=== PATIENT | male | born 1955 | race Two or more races ===

== ENCOUNTER 2020-10-31 09:40 | Day surgery (SDC) | payer MEDICARE, MEDICAID ==
[~2020-10-31] VITALS: Ht 165.1 cm; Wt 83.6 kg
[2020-10-31 09:55] VITALS: BP 137/76
[2020-10-31] MEDS ORDERED: METF-900 PO (09:59)
[2020-10-31] MEDS ORDERED: METF-436 PO (10:00)
[2020-10-31] MEDS ORDERED: GABA300C PO (10:01)
[2020-10-31] MEDS ORDERED: ASPI-611 PO (10:01)
[2020-10-31] MEDS ORDERED: MELO-102 PO (10:04)
[2020-10-31] MEDS ORDERED: ACET325T55 PO (10:04)
[2020-10-31] MEDS ORDERED: LISI-790 PO (10:05)
[2020-10-31] MEDS ORDERED: ATOR20TA66 PO (10:05)
[2020-10-31] MEDS ORDERED: MULT-1085 PO (10:06)
[2020-10-31] MEDS ORDERED: MIDAZolam 1 MG/ML 5ML VIAL ONE (10:18)
[2020-10-31] MEDS ORDERED: fentaNYL/PF 50MCG/1 ML 2ML syringe ONE (10:19)
[2020-10-31] MEDS ORDERED: LIDOcaine Viscous 15ml cup ONE (10:41)
[2020-10-31 11:26] VITALS: BP 101/69
[2020-10-31 11:36] VITALS: BP 111/58
[2020-10-31 11:46] VITALS: BP 107/71
[2020-10-31 11:56] VITALS: BP 130/70
== END 2020-10-31 12:05 | disposition home or self-care (01) ==
LOC: GI LAB 09:40
PROVIDERS: ATTEND Internal Medicine Gastroenterology
DX: D50.0 Iron deficiency anemia secondary to blood loss (chronic) (principal); K64.8 Other hemorrhoids; K63.5 Polyp of colon; K29.60 Other gastritis without bleeding; I10 Essential (primary) hypertension; E11.9 Type 2 diabetes mellitus without complications; Z79.84 Long term (current) use of oral hypoglycemic drugs; Z79.899 Other long term (current) drug therapy
CPT/HCPCS: 43239; 45380; 45385; 88305; 88342; 99153; C1773; G0500; J2250; J3010; J7040; Z7512; 99152; A4620

== ENCOUNTER 2022-10-29 07:32 | Day surgery (SDC) | payer MEDICARE, MEDICAID ==
[2022-10-22 16:07] LABS: BASOPHILS % (AUTO) 0.3 % (0-1); EOSINOPHILS # (AUTO) 0.2 X10'3 (0-0.9); EOSINOPHILS % (AUTO) 1.6 % (0-6); LYMPHOCYTES # (AUTO) 1.3 X10'3 (1.1-4.8); MEAN CORPUSCULAR HEMOGLOBIN 30.8 PG (27.0-31.0); MEAN CORPUSCULAR HGB CONC 33.3 g/dL (33.0-36.5); MEAN CORPUSCULAR VOLUME 92.5 FL (78-98); MEAN PLATELET VOLUME 8.1 FL (7.4-10.4); MONOCYTES # (AUTO) 0.8 X10'3 (0-0.9); MONOCYTES % (AUTO) 7.1 % (2-12); NEUTROPHILS # (AUTO) 8.9 X10'3 (1.8-7.7); PRE OP HEMATOCRIT 43.7 % (42.0-52.0); PRE OP HEMOGLOBIN 14.6 g/dL (14.0-17.9); PRE OP PLATELET COUNT 255 X10'3 (140-440); PRE OP WHITE BLOOD COUNT 11.2 10'3 (4.8-10.8); RED BLOOD COUNT 4.73 X10'6 (4.70-6.10); RED CELL DISTRIBUTION WIDTH 14.5 % (11.5-14.5)
[2022-10-22 16:14] LABS: PRE OP PROTIME 10.4 SECONDS (9.0-12.0)
[2022-10-22 16:16] LABS: ALBUMIN 3.6 G/DL (3.4-5.0); ALBUMIN/GLOBULIN RATIO 0.8 (1.1-1.5); ALKALINE PHOSPHATASE 89 IU/L (46-116); BLOOD UREA NITROGEN 23 MG/DL (7-18); BUN/CREATININE RATIO 18.7 (10.0-20.0); CALCIUM 9.7 MG/DL (8.5-10.1); CHLORIDE 101 MMOL/L (99-107); CREATININE 1.23 MG/DL (0.60-1.10); PRE OP ALT 31 U/L (30-65); PRE OP ANION GAP 8 (8-16); PRE OP AST 25 U/L (10-37); PRE OP BILIRUB, TOTAL 0.2 MG/DL (0.0-1.0); PRE OP GLUCOSE 135 MG/DL (70-104); PRE OP POTASSIUM 3.9 MMOL/L (3.4-5.1); PRE OP SODIUM 139 MMOL/L (135-145); TOTAL CARBON DIOXIDE 30.1 MMOL/L (24-32); TOTAL PROTEIN 8.1 G/DL (6.4-8.2); eGFR 59 ML/MIN
[2022-10-29] VITALS (14 sets, daily range): BP systolic 124–143; BP diastolic 67–83; PULSE 67–72; RESP 13–17; TEMP 97.7; O2SAT 92–99
[~2022-10-29] VITALS: Ht 167.6 cm; Wt 80.6 kg
[~2022-10-29 07:32] MED LIST: ALEN70TA80 PO; APIX5TAB3 PO; ATOR20TA66 PO; CALC-472 PO; DOCU-22 PO; DULO60CA65 PO; FERR-106 PO; FLO0.4C PO; GABA300C PO; HYDR-3972 PO; SENN-263 PO; cefazolin 2gm/D5W 100mL 100 ML IV ONE; famotidine 20mg tablet PO ONE; ringers solution, lacted 1,000 ML IV SCH; tranexamic acid inj. 1,000 MG in normal saline IV soln 100ML IV ONE
[2022-10-29] MEDS ORDERED: BUPIVACAINE liposomal/PF 13.3 MG/ML vial IM ONE (07:56)
[2022-10-29] MEDS ORDERED: vancomycin 1,000mg inj ONE (07:56)
[2022-10-29] MEDS ORDERED: BUPIVAcaine 0.5% inj/PF 30 ML ONE ×2 (07:56→09:48)
[2022-10-29] MEDS ORDERED: fentaNYL/PF 50MCG/1 ML 2ML syringe ONE (08:14)
[2022-10-29] MEDS ORDERED: midazolam 1 mg/ML 2ml injection ONE (08:15)
[2022-10-29] MEDS ORDERED: meperidine/PF 25mg/ml syringe IV PRN ×3 (08:25)
[2022-10-29] MEDS ORDERED: morphine 4 MG/ML inj SYRINge IV PRN (08:25)
[2022-10-29] MEDS ORDERED: morphine 2 MG/ML inj. syringe IV PRN (08:25)
[2022-10-29] MEDS ORDERED: proCHLORperazine 10 MG/2 ml inj IV PRN (08:25)
[2022-10-29] MEDS ORDERED: ondansetron/PF 4mg/2ml inj IV PRN (08:25)
[2022-10-29] MEDS ORDERED: ringers solution, lacted 1,000 ML IV SCH (08:25)
[2022-10-29] MEDS ORDERED: sevoflurane 250ml liquid IH ONE (08:31)
[2022-10-29] MEDS ORDERED: LIDOcaine 2% (20mg/ml) 5ml vial ONE (08:31)
[2022-10-29] MEDS ORDERED: dexamethasone sod phosphate 4mg/ml inj. ONE (09:55)
[2022-10-29] MEDS ORDERED: propofol inj 20 ML IV ONE (09:55)
[2022-10-29] MEDS ORDERED: ondansetron/PF 4mg/2ml inj ONE (09:56)
--- NOTE | 2022-10-29 10:05 | NUR ---
PT ARRIVED TO [facility] VIA [facility] ACCOMPANIED BY DR. KINNEY-ANESTHESIA REPORT GIVEN, PT DROWSY, VSS-GIVEN DICK HUGGER TO BRING UP TEMP, DENIES PAIN, LEFT ARM IN SLING-WRAPPED, CDI, 20G PIV TO RIGHT HAND, SCDS ON, ICE APPLIED TO ELBOW IN SLING, FINGERS-PINK/WARM/+CAP REFILL.
[2022-10-29] MEDS ORDERED: acetaminophen 1,000mg/100ml IV 100 ML IV ONE (10:55)
--- NOTE | 2022-10-29 11:05 | NUR ---
PT AWAKE, VSS-TEMP NOW 96.9, PAINFUL AT ELBOW-ICE IN PLACE, ELBOW ELEVATED, PAIN MEDS GIVEN. NO OTHER CHANGES IN ASSESSMENT
[2022-10-29] MEDS ORDERED: HYDROcodone/acetaminophen 10/325mg tab PO ONE (11:50)
--- NOTE | 2022-10-29 12:05 | NUR ---
PT MUCH BETTER, VSS, UP AND GETTING DRESSED, NO CHANGES IN ASSESSMENT, ARM IN SLING-FINGERS PINK/WARM, ABLE TO MOVE FINGERS AND ARM, D/C INSTRUCTIONS GIVEN TO PT-ALL QUESTIONS ANSWERED, PT HAS PAIN MANAGEMENT DR. JORGENSEN TO PROVIDE PAIN MEDS ACCORDING TO DR. AGUILA, PT CURRENTLY TKAING [facility] AT HOME-WILL F/U WITH DR JORGENSEN FOR MORE PAIN MEDS NEEDED. TAKEN VIA W/C WITH ALL BELONGINGS-INCLUDING CELL PHONE TO VEHICLE FOR TRANSPORT HOME.
== END 2022-10-29 12:05 | disposition home or self-care (01) ==
LOC: PAS 07:32
PROVIDERS: ATTEND Specialist
DX: M70.22 Olecranon bursitis, left elbow (principal); M77.8 Other enthesopathies, not elsewhere classified; I10 Essential (primary) hypertension; I48.91 Unspecified atrial fibrillation; E78.5 Hyperlipidemia, unspecified; G89.18 Other acute postprocedural pain; M19.90 Unspecified osteoarthritis, unspecified site; F32.A Depression, unspecified; N40.0 Benign prostatic hyperplasia without lower urinary tract symptoms; K21.9 Gastro-esophageal reflux disease without esophagitis; Z87.891 Personal history of nicotine dependence; F12.90 Cannabis use, unspecified, uncomplicated; Z79.899 Other long term (current) drug therapy; Z79.01 Long term (current) use of anticoagulants; Z98.1 Arthrodesis status; Z98.890 Other specified postprocedural states; Z87.442 Personal history of urinary calculi; Z82.49 Family history of ischemic heart disease and other diseases of the circulatory system; Z80.6 Family history of leukemia
CPT/HCPCS: 24105; 24147; 64415; 73080; 80053; 82948; 85025; 85610; 85730; 93005; C9290; J0131; J0690; J1100; J2175; J2250; J2270; J2405; J2704; J3010; J3490; J7030; J7120; S0020; Z7506; Z7508; Z7512; 76000; A4215; A4618; A6253; A6449; A6455; A7000; J3370

== ENCOUNTER 2023-01-30 10:43 | Day surgery (SDC) | payer MEDICARE, MEDICAID ==
[~2023-01-30] VITALS: Ht 167.6 cm; Wt 81.1 kg
[2023-01-30] VITALS (11 sets, daily range): BP systolic 107–132; BP diastolic 53–74; PULSE 58–67; RESP 14–15; TEMP 98.1; O2SAT 94–97
[~2023-01-30 10:43] MED LIST changes: -cefazolin 2gm/D5W 100mL 100 ML IV ONE; -famotidine 20mg tablet PO ONE; -ringers solution, lacted 1,000 ML IV SCH; -tranexamic acid inj. 1,000 MG in normal saline IV soln 100ML IV ONE
[2023-01-30] MEDS ORDERED: verapamil 2.5 mg/ml inj IV ONE (10:50)
[2023-01-30] MEDS ORDERED: LIDOcaine 1% (10mg/ml) 2ml vial ONE (10:50)
[2023-01-30] MEDS ORDERED: heparin 1,000unit/ml 10ml vial 10 ML ONE (10:51)
[2023-01-30] MEDS ORDERED: iohexol 350MG/ML 100ml bottle IV ONE ×2 (10:51→11:57)
[2023-01-30] MEDS ORDERED: midazolam 1 mg/ML 2ml injection ONE (10:51)
[2023-01-30] MEDS ORDERED: fentaNYL/PF 50MCG/1 ML 2ML syringe ONE (10:51)
[2023-01-30] MEDS ORDERED: nitroGLYCERIN 500mcg/5mL D5W 5 ML IV ONE (10:51)
[2023-01-30] MEDS ORDERED: HYDR2TAB7 PO (11:17)
[2023-01-30] MEDS ORDERED: CYCL1DRO2 EACHEYE (11:17)
[2023-01-30] MEDS ORDERED: CLOP75TA34 PO (11:17)
[2023-01-30] MEDS ORDERED: DILT120T3 PO (11:17)
[2023-01-30] MEDS ORDERED: normal saline 1,000 ML IV SCH (11:25)
[2023-01-30] MEDS ORDERED: diphenhydrAMINE 25mg capsule PO PRN (11:25)
[2023-01-30] MEDS ORDERED: LORazepam 0.5 MG tablet PO PRN (11:25)
[2023-01-30 11:40] LABS: EOSINOPHILS # (AUTO) 0.2 X10'3 (0-0.9); HEMOGLOBIN 12.2 g/dl (14.0-17.9)
[2023-01-30 11:41] LABS: ALBUMIN 3.2 G/DL (3.4-5.0); ANION GAP 8 (8-16); BLOOD UREA NITROGEN 20 MG/DL (7-18); BUN/CREATININE RATIO 17.4 (10.0-20.0); CALCIUM 9.5 MG/DL (8.5-10.1); CHLORIDE 104 MMOL/L (99-107); CREATININE 1.15 MG/DL (0.60-1.10); GLUCOSE 107 MG/DL (70-104); SODIUM 140 MMOL/L (135-145); TOTAL CARBON DIOXIDE 28.4 MMOL/L (24-32); eCRCL 55 ML/MIN; eGFR 63 ML/MIN
[2023-01-30 11:42] LABS: BASOPHILS % (AUTO) 0.6 % (0-1); EOSINOPHILS % (AUTO) 2.6 % (0-6); HEMATOCRIT 36.2 % (42.0-52.0); LYMPHOCYTES # (AUTO) 1.1 X10'3 (1.1-4.8); LYMPHOCYTES % (AUTO) 13.7 % (21-51); MEAN CORPUSCULAR HEMOGLOBIN 31.8 PG (27.0-31.0); MEAN CORPUSCULAR HGB CONC 33.7 g/dL (33.0-36.5); MEAN CORPUSCULAR VOLUME 94.3 FL (78-98); MEAN PLATELET VOLUME 7.9 FL (7.4-10.4); MONOCYTES # (AUTO) 0.8 X10'3 (0-0.9); MONOCYTES % (AUTO) 9.7 % (2-12); NEUTROPHILS % (AUTO) 73.4 % (42-75); PLATELET COUNT 266 X10'3 (140-440); RED BLOOD COUNT 3.84 X10'6 (4.70-6.10); RED CELL DISTRIBUTION WIDTH 14.9 % (11.5-14.5); WHITE BLOOD COUNT 8.2 X10'3 (4.5-11.0)
[2023-01-30 11:43] LABS: APTT 30 SECONDS (22-32)
[2023-01-30 11:45] LABS: CHOL/HDL RATIO 2.8 (0.00-4.99); CHOLESTEROL 113 MG/DL (0-200); HDL CHOLESTEROL 40 MG/DL (35-60); LDL CHOLESTEROL 63 MG/DL (50-100); TRIGLYCERIDES 55 MG/DL (20-135)
[2023-01-30] MEDS ORDERED: iohexol 350 MG/ML 50ML vial IV ONE ×2 (11:57→12:23)
[2023-01-30] MEDS ORDERED: aspirin 325mg tablet ONE (12:10)
[2023-01-30] MEDS ORDERED: clopidogrel 300mg tablet ONE (12:11)
[2023-01-30] MEDS ORDERED: nitroGLYCERIN 0.4mg SUBLingual tab SL ONE (12:34)
[2023-01-30] MEDS ORDERED: HYDROcodone/acetaminophen 10/325mg tab PO PRN (13:25)
[2023-01-30] MEDS ORDERED: HYDROcodone/acetaminophen 5mg/325mg tablet PO PRN (13:25)
[2023-01-30] MEDS ORDERED: nitroGLYCERIN 0.4mg SUBLingual tab SL PRN (13:25)
== END 2023-01-30 17:40 | disposition home or self-care (01) ==
LOC: SSTAY O 10:43
PROVIDERS: ATTEND Student in an Organized Health Care Education/Training Program
DX: R94.39 Abnormal result of other cardiovascular function study (principal); I25.10 Atherosclerotic heart disease of native coronary artery without angina pectoris; I48.91 Unspecified atrial fibrillation; I10 Essential (primary) hypertension; E78.5 Hyperlipidemia, unspecified; E11.9 Type 2 diabetes mellitus without complications; I70.0 Atherosclerosis of aorta; I73.9 Peripheral vascular disease, unspecified; Z79.01 Long term (current) use of anticoagulants; Z79.899 Other long term (current) drug therapy
CPT/HCPCS: 36415; 80048; 80061; 82948; 85025; 85610; 85730; 93005; 93458; 93567; 99152; 99153; C1874; C9600; J1644; J2250; J3010; J3490; J7030; Q0163; Q9967; A6258; A6402; A6449; C1725; C1751; C1769; C1894

== ENCOUNTER 2024-05-14 08:27 | Outpatient (CLI) | payer MEDICARE, MEDICAID ==
[~2024-05-14 08:27] MED LIST changes: +CLOP75TA34 PO; +CYCL1DRO2 EACHEYE; +DILT120T3 PO; -DOCU-22 PO; -FLO0.4C PO; -HYDR-3972 PO; +HYDR2TAB7 PO; -SENN-263 PO; +TAMS-55 PO
[2024-05-14] MEDS ORDERED: iohexol 350 MG/ML 50ML vial IV ONE (08:53)
[2024-05-14] MEDS ORDERED: iohexol 350MG/ML 100ml bottle IV ONE (08:53)
[2024-05-14 08:58] LABS: ALBUMIN 3.2 G/DL (3.4-5.0); ANION GAP 8 (8-16); BLOOD UREA NITROGEN 21 MG/DL (7-18); BUN/CREATININE RATIO 16.9 (10.0-20.0); CALCIUM 8.9 MG/DL (8.5-10.1); CHLORIDE 106 MMOL/L (99-107); CREATININE 1.24 MG/DL (0.60-1.10); GLUCOSE 120 MG/DL (70-104); POTASSIUM 4.1 MMOL/L (3.5-5.1); SODIUM 142 MMOL/L (135-145); TOTAL CARBON DIOXIDE 28.1 MMOL/L (24-32); eGFR 58 ML/MIN
== END 2024-05-14 23:59 | disposition home or self-care (01) ==
LOC: RAD 08:27
PROVIDERS: ATTEND Internal Medicine Interventional Cardiology
DX: I74.5 Embolism and thrombosis of iliac artery (principal); I70.8 Atherosclerosis of other arteries; I25.10 Atherosclerotic heart disease of native coronary artery without angina pectoris; I70.213 Atherosclerosis of native arteries of extremities with intermittent claudication, bilateral legs; I70.0 Atherosclerosis of aorta; J98.11 Atelectasis
CPT/HCPCS: 36415; 75635; 80048; Q9967